=== PATIENT | female | born 1965 | race Caucasian/White ===

== ENCOUNTER 2016-10-29 22:25 | Emergency (ER) | payer BC, OTHER ==
[~2016-10-29] VITALS: Ht 152.4 cm; Wt 78.5 kg
[~2016-10-29 22:25] MED LIST: BACTDS PO; CEPH-443 PO; CLIN-73 PO
[2016-10-29 22:32] VITALS: Ht 152.4 cm; Wt 78.5 kg
[2016-10-30] MEDS ORDERED: CETI10CA PO (00:33)
[2016-10-30] MEDS ORDERED: HC1C30 TOP (00:33)
--- NOTE | 2016-10-30 00:51 | ERD ---
ER Documentation Chief Complaint Date/Time DATE: 10/30/16 TIME: 00:47 Chief Complaint possible insect bite to right inner thigh x 3 days. c/o redness/itch HPI 51-year-old female with no significant past medical history presents to the ED complaining of a rash noted on the right inner thigh that started 3 days ago. States that it is red and itchy. Reports that she is unsure if an insect bite, exposure to insects, the use of soaps, detergents. Reports that she has been applying Benadryl anti-itch cream which has not been alleviating her symptoms. Denies any fever, chills, abdominal pain, nausea, vomiting, diarrhea. ROS All systems reviewed and are negative except as per history of present illness. Medications Home Meds Active Scripts Hydrocortisone* Topical (Hydrocortisone* Topical) 1%-28.35 Gm Cream..g., 1 APPLIC TOP Q6 Y for ITCHING, #1 TUB Prov:EL LEE PA-C 10/30/16 Cetirizine Hcl* (Zyrtec*) 10 Mg Capsule, 10 MG PO DAILY, #10 TAB.CHEW Prov:EL LEE PA-C 10/30/16 Sulfamethoxazole-Trimethoprim* (Bactrim* DS) 800-160 Mg Tab, 1 TAB PO BID for 7 Days, TAB Prov:MAGGIE NICHOLE PA-C 03/02/16 Cephalexin* (Keflex*) 500 Mg Capsule, 500 MG PO QID for 7 Days, CAP Prov:MAGGIE NICHOLE PA-C 03/02/16 Clindamycin Hcl* (Clindamycin Hcl*) 300 Mg Capsule, 300 MG PO TID for 10 Days, CAP Prov:SARA HENSON PA-C 01/24/16 Allergies Allergies: Coded Allergies: No Known Allergy (Unverified , 10/29/16) PMhx/Soc History of Surgery: Yes (Hysterectomy, prolasped urinary bladder surgery) Anesthesia Reaction: No Hx Neurological Disorder: No Hx Respiratory Disorders: No Hx Cardiac Disorders: No Hx Psychiatric Problems: No Hx Miscellaneous Medical Probl: No (current kidney stone in ureter) Hx Alcohol Use: No Hx Substance Use: No Hx Tobacco Use: No Smoking Status: Never smoker Physical Exam Vitals Vital Signs Date Time Temp Pulse Resp B/P Pulse Ox O2 Delivery O2 Flow Rate FiO2 10/29/16 22:32 97.3 91 20 118/74 97 Physical Exam Const: [id number]-afr-[id number], well-nourished. In no acute distress. Head: Atraumatic, normocephalic Eyes: Normal Conjunctiva without injection ENT: Normal external ear, nose and mouth. Neck: Full range of motion. No meningismus. Resp: Clear to auscultation bilaterally. No wheezing, rhonchi, rales, or crackles. No accessory muscle use. No retractions. Cardio: Regular rate and rhythm, no murmurs Skin: No petechiae, purpura. 5 cm blanching erythema noted on right thigh. No purulent discharge, fluctuance, induration. No bleeding noted. No tenderness to palpation. Back: No midline tenderness. No CVA tenderness. Ext: No cyanosis, or edema. Cap refill less than 2 seconds. Distal pulses intact bilaterally. Neur: Awake and alert. Normal gait and coordination. Muscle strength 5/5. Sensation intact bilaterally. Psych: Normal Mood and Affect Procedures/MDM 51 year old female with no significant past medical history presents to the ED complaining of a rash noted on her right thigh. Patient is afebrile and nontoxic appearing. Other differential diagnosis include but is not limited to allergic contact dermatitis, urticaria, insect bites, cutaneous candidiasis, eczema, scabies, tinea infection, psoriasis. Low suspicion for SJS/TEN, erythema multiforme, sepsis, cellulitis, necrotizing fascitis, gangrene, meningococcemia or other emergent conditions. This case was discussed with my supervising physician, Dr. Lara who stated that patient can be managed on an outpatient basis. Discharge medications: Zyrtec, hydrocortisone Follow up with primary care physician in 1-2 days. Instructed patient to return to the ED sooner for any worsening symptoms. Patient's questions were answered. Patient understood and agreed with discharge plan. Patient discharged stable. Departure Diagnosis: Primary Impression: Rash and nonspecific skin eruption Condition: Stable Patient Instructions: Self-Care for Skin Rashes Referrals: COMMUNITY CLINICS YOU HAVE RECEIVED A MEDICAL SCREENING EXAM AND THE RESULTS INDICATE THAT YOU DO NOT HAVE A CONDITION THAT REQUIRES URGENT TREATMENT IN THE EMERGENCY DEPARTMENT. FURTHER EVALUATION AND TREATMENT OF YOUR CONDITION CAN WAIT UNTIL YOU ARE SEEN IN YOUR DOCTORS OFFICE WITHIN THE NEXT 1-2 DAYS. IT IS YOUR RESPONSIBILITY TO MAKE AN APPOINTMENT FOR FOLOW-UP CARE. IF YOU HAVE A PRIMARY DOCTOR --you should call your primary doctor and schedule an appointment IF YOU DO NOT HAVE A PRIMARY DOCTOR YOU CAN CALL OUR PHYSICIAN REFERRAL HOTLINE AT IF YOU CAN NOT AFFORD TO SEE A PHYSICIAN YOU CAN CHOSE FROM THE FOLLOWING [facility] [address] [facility] [address] [facility] [address] [facility] [address] [facility] [address] [facility]. [facility] [address] [facility]. [facility] YOU HAVE RECEIVED A MEDICAL SCREENING EXAM AND THE RESULTS INDICATE THAT YOU DO NOT HAVE A CONDITION THAT REQUIRES URGENT TREATMENT IN THE EMERGENCY DEPARTMENT. FURTHER EVALUATION AND TREATMENT OF YOUR CONDITION CAN WAIT UNTIL YOU ARE SEEN IN YOUR DOCTORS OFFICE WITHIN THE NEXT 1-2 DAYS. IT IS YOUR RESPONSIBILITY TO MAKE AN APPOINTMENT FOR FOLOW-UP CARE. IF YOU HAVE A PRIMARY DOCTOR --you should call your primary doctor and schedule and appointment IF YOU DO NOT HAVE A PRIMARY DOCTOR YOU CAN CALL OUR PHYSICIAN REFERRAL HOTLINE AT . IF YOU CAN NOT AFFORD TO SEE A PHYSICIAN YOU CAN CHOSE FROM THE FOLLOWING [facility] INSTITUTIONS: [facility] [id number] [place] [address] [facility] [address] [place] [address] [facility] [address] [place] [address] [facility] U[facility]ENT [facility]SPECIALTIES Additional Instructions: FOLLOW UP WITH YOUR PRIMARY CARE PHYSICIAN IN 1-2 DAYS FOR A DERMATOLOGY REFERRAL.Return to this facility if you are not improving as expected. EL LEE PA-C Oct 30, 2016 00:51
== END 2016-10-30 00:59 | disposition home or self-care (01) ==
LOC: FTE 22:25
DX: R21 Rash and other nonspecific skin eruption (principal)
CPT/HCPCS: 99283

== ENCOUNTER 2018-12-07 13:52 | Emergency (ER) | payer OTHER ==
[~2018-12-07] VITALS: Wt 81.0 kg
[~2018-12-07 13:52] MED LIST changes: +CETI10CA PO; -CLIN-73 PO; +CLIN300C10 PO; +HC1C30 TOP
[2018-12-07] MEDS ORDERED: SOD CHLORIDE 0.9% 1,000 ML IV STA (16:14)
--- NOTE | 2018-12-07 16:30 | ERD ---
ER Documentation Chief Complaint Chief Complaint ABD PAIN, R ARM PAIN AND SWELLING X 1 WEEK HPI 53-year-old female who presents to the emergency room complaining of at least 2 months of intermittent swelling to the right upper extremity. She states that intermittently, usually in the night she notes swelling and possible discolora tion of her right upper extremity. She denies any significant pain though does have some mild discomfort under the axilla of the right upper extremity. She denies any fevers or chills, no chest pressure, no exertional symptoms. The symptoms have been waxing and waning for at least 2 months. Again this is usually occurring at night. She has been sleeping on her left side though before she did intermittently sleep on her right side. She has been evaluated approximately 2 weeks ago to an outside emergency room with a negative right upper extremity ultrasound and chest x-ray. During the patient's encounter translation services were utilized Language: Aremenian Source: Family ROS All systems reviewed and are negative except as per history of present illness. Medications Home Meds Active Scripts Hydrocortisone* Topical (Hydrocortisone* Topical) 1%-28.35 Gm Cream..g., 1 APPLIC TOP Q6 PRN for ITCHING, #1 TUB Prov:EL LEE PA-C 10/30/16 Cetirizine Hcl* (Zyrtec*) 10 Mg Capsule, 10 MG PO DAILY, #10 TAB.CHEW Prov:EL LEE PA-C 10/30/16 Sulfamethoxazole-Trimethoprim* (Bactrim* DS) 800-160 Mg Tab, 1 TAB PO BID for 7 Days, TAB Prov:MAGGIE NICHOLE PA-C 03/02/16 Cephalexin* (Keflex*) 500 Mg Capsule, 500 MG PO QID for 7 Days, CAP Prov:MAGGIE NICHOLE PA-C 03/02/16 Clindamycin Hcl* (Clindamycin Hcl*) 300 Mg Capsule, 300 MG PO TID for 10 Days, CAP Prov:SARA HENSON PA-C 01/24/16 Allergies Allergies: Coded Allergies: No Known Allergy (Unverified , 10/29/16) PMhx/Soc History of Surgery: Yes (Hysterectomy, prolasped urinary bladder surgery) Anesthesia Reaction: No Hx Neurological Disorder: No Hx Respiratory Disorders: No Hx Cardiac Disorders: No Hx Psychiatric Problems: No Hx Miscellaneous Medical Probl: No (current kidney stone in ureter) Hx Alcohol Use: No Hx Substance Use: No Hx Tobacco Use: No FmHx Family History: No diabetes Physical Exam Vitals Vital Signs Date Temp Pulse Resp B/P (MAP) Pulse Ox O2 O2 Flow FiO2 Time Delivery Rate 12/07/18 98.6 81 18 120/81 99 Room Air 19:25 (94) 12/07/18 Nasal 2 17:18 Cannula 12/07/18 98.6 116 18 114/83 99 13:57 (93) Physical Exam General: Well developed, well nourished, no acute distress Head: Normocephalic, atraumatic. Eyes: Pupils equally reactive, EOM intact ENT: Moist mucous membranes Neck: Supple, no lymphadenopathy Respiratory: Lungs clear bilaterally, no distress Cardiovascular: RRR, no murmurs, rubs, or gallops Abdominal: Soft, non-tender, non-distended, no peritoneal signs : Deferred MSK: No edema, no unilateral swelling, 5/5 strength, right upper extremity with no pulse deficits. Full active and passive range of motion of the shoulder elbow and wrist. 2+ radial ulnar pulses. Radial, median, ulnar, axillary nerves assessed and intact both motor and sensory function. No discoloration noted to the right upper extremity. Negative supraspinatus test to the right upper extremity. Neurologic: Alert and oriented, moving all extremities, normal speech, no focal weakness, no cerebellar signs Skin: No rash Psych: Normal mood Result Diagram: 12/07/18 1644 12/07/18 1644 Results 24 hrs Laboratory Tests Test 12/07/18 16:44 White Blood Count 5.8 10^3/ul Red Blood Count 4.05 10^6/ul Hemoglobin 11.4 g/dl Hematocrit 36.9 % Mean Corpuscular Volume 91.1 fl Mean Corpuscular Hemoglobin 28.1 pg Mean Corpuscular Hemoglobin Concent 30.9 g/dl Red Cell Distribution Width 13.3 % Platelet Count 393 10^3/UL Mean Platelet Volume 9.6 fl Immature Granulocytes % 0.300 % Neutrophils % 45.0 % Lymphocytes % 44.5 % Monocytes % 8.1 % Eosinophils % 1.6 % Basophils % 0.5 % Nucleated Red Blood Cells % 0.0 /100WBC Immature Granulocytes # 0.020 10^3/ul Neutrophils # 2.6 10^3/ul Lymphocytes # 2.6 10^3/ul Monocytes # 0.5 10^3/ul Eosinophils # 0.1 10^3/ul Basophils # 0.0 10^3/ul Nucleated Red Blood Cells # 0.0 10^3/ul Prothrombin Time 12.0 Sec Prothrombin Time Ratio 0.9 INR International Normalized Ratio 0.88 Activated Partial Thromboplast Time 26.3 Sec Sodium Level 141 mmol/L Potassium Level 3.9 mmol/L Chloride Level 107 mmol/L Carbon Dioxide Level 25 mmol/L Anion Gap 9 Blood Urea Nitrogen 19 mg/dl Creatinine 0.61 mg/dl Est Glomerular Filtrat Rate mL/min > 60 mL/min Glucose Level 115 mg/dl Calcium Level 9.9 mg/dl Troponin I < 0.012 ng/ml Current Medications Medications Dose Sig/[place] Start Time Status Last (Trade) Ordered Route PRN Stop Time Admin Dose Reason Admin Sodium 1,000 ml @ Q1H STAT 12/07/18 DC 12/07/18 Chloride 1,000 mls/hr IV 16:14 16:14 12/07/18 17:13 IV Flush 10 ml STK-MED 12/07/18 DC 12/07/18 (NS 10 ml) ONCE .ROUTE 18:14 18:27 12/07/18 18:15 Sodium 100 ml @ ud STK-MED 12/07/18 DC 12/07/18 Chloride ONCE .ROUTE 18:14 18:27 12/07/18 18:15 Iohexol 150 ml STK-MED 12/07/18 DC 12/07/18 (Omnipaque ONCE .ROUTE 18:14 18:28 300mg/ ml) 12/07/18 18:15 Procedures/MDM EKG, MONITORS, & DIAGNOSTIC IMAGING: EKG: I reviewed and interpreted a 12-lead EKG. Rhythm: Normal sinus rhythm ST Changes: No contiguous ST segment elevations T waves: No contiguous T wave inversions Impression: No evidence of acute cardiac ischemia CT chest with IV contrast: IMPRESSION: 1. 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 2. No mass, lymphadenopathy, or focal acute infiltrate is identified. 3. Scattered subsegmental atelectasis and air trapping in the lower lobes. 4. Small sliding hiatal hernia with a linear area of increased density in the hiatal hernia possibly ingested foreign body in the proper clinical setting. Correlation with detailed history is recommended. 5. Mild cardiomegaly and trace pericardial effusion. 6. Hepatic steatosis. Right upper extremity ultrasound: Neg for dvt LAB INTERPRETATION: I reviewed the laboratory testing and it shows no evidence of acute process MEDICAL DECISION MAKING: The patient's symptoms are subacute and nonspecific. Serious etiologies may include right upper extremity DVT versus thoracic outlet syndrome. Her symptoms are not exertional and not consistent with acute coronary syndrome. No sudden symptoms suggestive of dissection. Patient is otherwise neurovascularly intact. The patient has strong pulses without pulse deficit. Patient has no significant unilateral swelling. Consider possible Raynaud's syndrome of UE. Based on these findings ultrasound and CT of the chest would be appropriate. Reassurance provided. ER COURSE: * Laboratory testing and diagnostic imaging is otherwise unrevealing. The patient continues to be well-appearing and asymptomatic in the emergency room setting. At this point I feel the patient can be safely discharged home. Unclear etiology as to the patient's symptomatology. Outpatient follow-up is certainly necessary and return precautions were discussed and understood. CONSULTATION: None DISPOSITION PLAN: The patient does not have an identifiable emergent medical condition that war rants inpatient hospitalization at this time. The patient is deemed safe for discharge with outpatient follow-up. We discussed follow up with the patient's primary care doctor within 24 to 48 hours as needed. We also discussed return to the emergency room for worsening symptoms or worsening condition. Outpatient referral: None required Discharge Medications: None required Departure Diagnosis: Primary Impression: Paresthesia of arm Condition: Stable JOY BLANCO MD Dec 07, 2018 16:30
[2018-12-07] MEDS ORDERED: IOHEXOL 300MG/ML 150 ML BTL ONE (18:14)
[2018-12-07] MEDS ORDERED: SOD CHLORIDE 0.9% 100 ML ONE (18:14)
[2018-12-07 19:25] VITALS: BP 120/81; PULSE 81; RESP 18
== END 2018-12-07 19:33 | disposition home or self-care (01) ==
LOC: E/R 13:52
DX: R20.2 Paresthesia of skin (principal)
CPT/HCPCS: 71260; 80048; 84484; 85025; 85610; 85730; 93005; 93971; J7030; Q9967; Z7502; Z7610